=== PATIENT | female | born 1980 | race Caucasian/White ===

== ENCOUNTER 2020-11-12 03:05 | Emergency (ER) | payer MEDICARE, MEDICAID ==
[~2020-11-12] VITALS: Ht 152.4 cm; Wt 60.0 kg
[2020-11-12] MEDS ORDERED: ondansetron 4mg rapidly disintigrating tab PO ONE (03:15)
[2020-11-12] MEDS ORDERED: ONDA4TAB6 PO (04:13)
[2020-11-12 05:00] VITALS: BP 140/90
== END 2020-11-12 05:19 | disposition home or self-care (01) ==
LOC: ER 03:05
DX: R11.2 Nausea with vomiting, unspecified (principal); R53.1 Weakness; Z90.89 Acquired absence of other organs; Z90.710 Acquired absence of both cervix and uterus; Z88.0 Allergy status to penicillin; Z88.5 Allergy status to narcotic agent; Z88.1 Allergy status to other antibiotic agents; Z88.8 Allergy status to other drugs, medicaments and biological substances; Z79.899 Other long term (current) drug therapy
CPT/HCPCS: 99283

== ENCOUNTER 2022-03-29 14:46 | Emergency (ER) | payer MEDICARE, MEDICAID ==
[~2022-03-29 14:46] MED LIST: ONDA4TAB6 PO
[2022-03-29 14:55] VITALS: BP 162/74
[2022-03-29] MEDS ORDERED: ketorolac trometh. 30mg/ml inj. IM ONE (16:25)
[2022-03-29] MEDS ORDERED: ondansetron 4mg rapidly disintigrating tab PO ONE (16:25)
[2022-03-29] MEDS ORDERED: ONDA4TAB12 PO (16:31)
== END 2022-03-29 17:15 | disposition home or self-care (01) ==
LOC: ER 14:46
DX: B34.9 Viral infection, unspecified (principal); Z88.0 Allergy status to penicillin; Z88.5 Allergy status to narcotic agent; Z88.2 Allergy status to sulfonamides; Z88.8 Allergy status to other drugs, medicaments and biological substances; Z79.899 Other long term (current) drug therapy; Z90.49 Acquired absence of other specified parts of digestive tract; Z98.890 Other specified postprocedural states
CPT/HCPCS: 87502; 87503; 96372; 99283; J1885

== ENCOUNTER 2024-03-23 14:17 | Emergency (ER) | payer MEDICARE, MEDICAID ==
[~2024-03-23] VITALS: Ht 149.9 cm; Wt 56.8 kg
[~2024-03-23 14:17] MED LIST changes: +ONDA-243 PO
[2024-03-23 15:12] VITALS: BP 140/86; PULSE 87; TEMP 97.7; O2SAT 99
[2024-03-23 15:29] VITALS: RESP 16
[2024-03-23] MEDS ORDERED: ACET-1025 PO (17:31)
[2024-03-23] MEDS ORDERED: IBUP-1985 PO (17:31)
[2024-03-23] MEDS: ibuprofen tablet 400 MG TABLET PO STA (17:38)
[2024-03-23] MEDS: acetaminophen 325mg tablet PO STA (17:39)
== END 2024-03-23 17:41 | disposition home or self-care (01) ==
LOC: ER 14:18
DX: J22 Unspecified acute lower respiratory infection (principal); R05.9 Cough, unspecified; Z88.0 Allergy status to penicillin; Z88.2 Allergy status to sulfonamides; Z88.5 Allergy status to narcotic agent; Z88.8 Allergy status to other drugs, medicaments and biological substances; Z90.710 Acquired absence of both cervix and uterus; Z90.49 Acquired absence of other specified parts of digestive tract; Z79.899 Other long term (current) drug therapy
CPT/HCPCS: 99283

== ENCOUNTER 2024-04-26 08:20 | Emergency (ER) | payer MEDICARE, MEDICAID ==
[~2024-04-26] VITALS: Ht 149.9 cm; Wt 53.6 kg
[~2024-04-26 08:20] MED LIST changes: +IBUP-1985 PO
[2024-04-26 09:10] LABS: BASOPHILS % (AUTO) 0.3 % (0-1); EOSINOPHILS % (AUTO) 0.4 % (0-6); HEMATOCRIT 40.9 % (35.0-45.0); LYMPHOCYTES # (AUTO) 0.3 X10'3 (1.1-4.8); LYMPHOCYTES % (AUTO) 4.3 % (21-51); MEAN CORPUSCULAR HEMOGLOBIN 31.2 PG (27.0-31.0); MEAN CORPUSCULAR HGB CONC 34.3 g/dL (33.0-36.5); MEAN PLATELET VOLUME 7.6 FL (7.4-10.4); MONOCYTES # (AUTO) 0.5 X10'3 (0-0.9); MONOCYTES % (AUTO) 8.4 % (2-12); NEUTROPHILS # (AUTO) 5.3 X10'3 (1.8-7.7); NEUTROPHILS % (AUTO) 86.6 % (42-75); PLATELET COUNT 265 X10'3 (140-440); RED BLOOD COUNT 4.49 X10'6 (4.20-5.60); RED CELL DISTRIBUTION WIDTH 13.1 % (11.5-14.5); WHITE BLOOD COUNT 6.2 X10'3 (4.5-11.0)
[2024-04-26 09:18] LABS: ALBUMIN 4.2 G/DL (3.4-5.0); ANION GAP 7 (8-16); BLOOD UREA NITROGEN 8 MG/DL (7-18); BUN/CREATININE RATIO 9.8 (10.0-20.0); CHLORIDE 103 MMOL/L (99-107); CREATININE 0.82 MG/DL (0.40-0.90); GLUCOSE 125 MG/DL (70-104); MAGNESIUM 1.7 MG/DL (1.5-2.4); SODIUM 140 MMOL/L (135-145); TOTAL CARBON DIOXIDE 30.3 MMOL/L (24-32); eCRCL 61 ML/MIN; eGFR 76 ML/MIN
[2024-04-26] MEDS: normal saline 1000ML IV soln IV ONE (09:21)
[2024-04-26] MEDS: CefTRIAXone 2gm/D5W 50ml BAG 50 ML IV ONE (09:22)
[2024-04-26 09:32] LABS: CALCIUM 8.5 MG/DL (8.5-10.1)
[2024-04-26] MEDS: potassium Cl 20 mEq SR tablet PO ONE (09:59)
[2024-04-26] MEDS: metoclopramide 5 mg/ml inj IV ONE (10:00)
[2024-04-26] MEDS: POTASSIUM CHLORIDE 20 MEQ/15 ML oral solution PO ONE (10:00)
[2024-04-26] MEDS: ketorolac trometh 30MG/ML vial 30 MG/ML VIAL IV ONE (10:00)
[2024-04-26] MEDS: magnesium sulf-water 2g/50mL 50 ML IV ONE (10:03)
[2024-04-26 10:34] LABS: BILIRUBIN,URINE NEGATIVE (Neg); CLARITY,URINE CLEAR (Clear); COLOR,URINE YELLOW (Yellow); GLUCOSE, URINE NEGATIVE (Neg); KETONES,URINE NEGATIVE (Neg); LEUKOCYTE ESTERASE ,URINE NEGATIVE (Neg); NITRITES, URINE NEGATIVE (Neg); OCCULT BLOOD,URINE NEGATIVE (Neg); PROTEIN,URINE NEGATIVE (Neg); UROBILINOGEN,URINE 0.2 E.U/dL (0.2-1.0)
[2024-04-26 10:35] LABS: UA COLLECTION TYPE NON-SPECIFIED
[2024-04-26 11:19] LABS: URINE HCG NEGATIVE (NEG)
[2024-04-26] MEDS: acetaminophen 325mg tablet PO ONE (12:39)
[2024-04-26 13:55] VITALS: BP 109/64; PULSE 101; RESP 18; O2SAT 96
[2024-04-26 14:10] VITALS: TEMP 98.7
[2024-04-26] MEDS ORDERED: TAM75C PO (14:24)
[2024-04-26] MEDS: oseltamivir phos 75mg capsule PO ONE (14:38)
== END 2024-04-26 15:24 | disposition home or self-care (01) ==
LOC: ER 08:21
DX: J10.1 Influenza due to other identified influenza virus with other respiratory manifestations (principal); Z88.0 Allergy status to penicillin; Z88.2 Allergy status to sulfonamides; Z88.1 Allergy status to other antibiotic agents; Z91.041 Radiographic dye allergy status; Z88.5 Allergy status to narcotic agent; Z88.8 Allergy status to other drugs, medicaments and biological substances; Z90.710 Acquired absence of both cervix and uterus; Z90.49 Acquired absence of other specified parts of digestive tract; Z20.822 Contact with and (suspected) exposure to COVID-19
CPT/HCPCS: 36415; 71045; 80048; 81003; 81025; 83605; 83735; 84145; 85025; 87040; 87502; 87503; 87811; 93005; 96365; 96367; 96375; 99285; J0696; J1885; J2765; J7030; 94760

== ENCOUNTER 2024-10-13 19:54 | Emergency (ER) | payer MEDICARE, MEDICAID ==
[~2024-10-13] VITALS: Ht 149.9 cm; Wt 57.0 kg
[2024-10-13 20:06] VITALS: BP 163/87; PULSE 87; RESP 16; O2SAT 100
--- NOTE | 2024-10-13 20:29 | Physician Documentation ---
History of Present Illness ~ Chief Complaint: Bite-insect Stated Complaint: BITE Time Seen by MD: 20:46 Primary Medical Doctor: kaite miles HPI 44-year-old female that presents to the emergency department for evaluation of a bug bite on her right forearm the bite has been there for a couple of days and it hurts very much. Patient has requested Tylenol and ibuprofen for the pain. Patient denies seeing a bug bite her. Tetanus within 5 years?: Yes Medication Reconciliation Allergies: Coded Allergies: Penicillins (Verified Allergy, Intermediate, Hives, 10/13/24) morphine (Verified Allergy, Intermediate, nightmares, 10/13/24) sulfamethoxazole (Verified Allergy, Intermediate, Hives, 10/13/24) trimethoprim (Verified Allergy, Intermediate, Hives, 10/13/24) Iodinated Contrast Media (Verified Allergy, Unknown, 10/13/24) Scheduled Ibuprofen (Ibuprofen), 1 TAB PO Q8H Ibuprofen (Ibuprofen), 1 TAB PO Q8H Ondansetron Hcl (Zofran), 1 TAB PO Q8H Scheduled PRN ONDANSETRON ODT 4mg tablet (Ondansetron Odt), 1 TABLET PO Q6H PRN for nausea/vomiting Past Medical History 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 Physical Exam Vital Signs: Temperature: 98.0, Source: Temporal, Heart Rate: 87, Respiratory Rate: 16, BP: 163/87, Pulse Oximetry: 100, Weight: 57.000 Oxygen Flow Rate: 0 Physical Exam Scribed for Emergency,Department by RENÉ Catalan . 10/13/24 20:26 Progress Results/Orders Results/Orders Completed Orders - JENNIFER VARGAS Acetaminophen 325mg Tablet (Tylenol Tabl (10/13/24 20:30) Ibuprofen Tablet (Motrin Tablet) (10/13/24 20:30) Medications Received in ER Medications (Trade) Dose Ordered Sig/Natalia Route PRN Reason Start Time Stop Time Status Last Admin Dose Admin (Tylenol tablet) 650 mg ONCE ONCE PO 10/13/24 20:30 10/13/24 20:32 DC 10/13/24 20:42 650 MG (Motrin tablet) 600 mg ONCE ONCE PO 10/13/24 20:30 10/13/24 20:32 DC 10/13/24 20:41 600 MG Vital Signs 10/13/24 20:06 Temp 98.0 Pulse 87 Resp 16 B/P (MAP) 163/87 Pulse Ox 100 O2 Flow Rate 0 Medical Decision Making Findings This patient who presents with rash, consistent with a bug bite. History and exam findings not consistent with dangerous etiologies of rash such as SJS/TEN, or secondary dangerous causes such as petechial rashes from thrombocytopenia or rickettsial infections. Rash does not appear urticarial with no signs of anaphylaxis either. Plan at this time is to treat symptomatically, instruct to follow up with PCP or derm PRN Departure Disposition: 01 HOME / SELF CARE / HOMELESS Impression: Primary Impression: Insect bites Condition: Stable Additional Instructions: Please follow up with your primary care provider for additional evaluation. If your symptoms worsen or you develop any additional concerning symptoms please return to the ER. Please take Tylenol ibuprofen as needed for discomfort. Referrals: NO PRIMARY CARE PROVIDER (PCP) Education Educated: Patient Educated regarding: treatment, need for follow up Signature Scribe Signature: . Attestation: Scribed for Jennifer Vargas by RENÉ Catalan . 10/13/24 20:49 JENNIFER VARGAS Oct 13, 2024 20:29
[2024-10-13 20:57] VITALS: TEMP 98
== END 2024-10-13 20:58 | disposition home or self-care (01) ==
LOC: ER 19:54
DX: S50.861A Insect bite (nonvenomous) of right forearm, initial encounter (principal); Z88.0 Allergy status to penicillin; Z88.1 Allergy status to other antibiotic agents; Z88.2 Allergy status to sulfonamides; Z88.5 Allergy status to narcotic agent; Z88.8 Allergy status to other drugs, medicaments and biological substances; Z90.49 Acquired absence of other specified parts of digestive tract; Z90.710 Acquired absence of both cervix and uterus; W57.XXXA Bitten or stung by nonvenomous insect and other nonvenomous arthropods, initial encounter; Z91.041 Radiographic dye allergy status; Y93.89 Activity, other specified; Y92.89 Other specified places as the place of occurrence of the external cause; Y99.8 Other external cause status
CPT/HCPCS: 99283

== ENCOUNTER 2025-01-20 20:57 | Emergency (ER) | payer MEDICARE, MEDICAID ==
[~2025-01-20] VITALS: Ht 149.9 cm; Wt 60.0 kg
[~2025-01-20 20:57] MED LIST changes: -IBUP-1985 PO; +IBUP600T52 PO
--- NOTE | 2025-01-20 21:20 | Physician Documentation ---
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 She reports experiencing headache, starting from the occipital, wrapping around her whole had. No particular palliating or aggravating factors. Did not attempt to treat it. She also reports fever, chills. Reports nasal congestion. Reports chest pain with deep inspiration and cough. No shortness a breath however. Self reports nausea, innumerable episodes of vomiting, several episodes of diarrhea, lower abdominal pain. No palliating or aggravating factors. Denies any chance of . No concern for tobacco, alcohol or illicit substances use Medication Reconciliation Allergies: Coded Allergies: Penicillins (Verified Allergy, Intermediate, Hives, 10/13/24) morphine (Verified Allergy, Intermediate, nightmares, 10/13/24) sulfamethoxazole (Verified Allergy, Intermediate, Hives, 10/13/24) trimethoprim (Verified Allergy, Intermediate, Hives, 10/13/24) Iodinated Contrast Media (Verified Allergy, Unknown, 10/13/24) Scheduled Ibuprofen (Ibuprofen), 1 TAB PO Q8H Ibuprofen (Ibuprofen), 1 TAB PO Q8H Ondansetron Hcl (Zofran), 1 TAB PO Q8H Scheduled PRN ONDANSETRON ODT 4mg tablet (Ondansetron Odt), 1 TABLET PO Q6H PRN for nausea/vomiting Past Medical History 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 Physical Exam Physical Exam Vital Signs: Temperature: 99.0, Source: Oral, Heart Rate: 110, Respiratory Rate: 17, BP: 157/90, Pulse Oximetry: 98, Weight: 60.000 Physical Exam GENERAL: Awake, alert, oriented, GCS 15, no apparent distress, non-toxic appearing, answers questions, follows commands appropriately. Examined in bed 10. HEENT: Atraumatic, normocephalic, pupils equal, extraocular muscles intact, sclerae anicteric, mucus membranes moist, oropharynx is clear, no stridor. NECK: supple, full active range of motion, trachea midline, no thyromegaly, no lymphadenopathy, no JVD. CARDIOVASCULAR: Tachycardic and regular rate/rhythm, no murmurs/gallops/rubs, Pulses are 2+ in all extremities and symmetric. Capillary refill less than 2 seconds. PULMONARY: Nonlabored, good air movement ,no respiratory distress, speaking in full sentences, clear to auscultation bilaterally, no wheezing, no ronchi, no rales, no accessory muscle use. GASTROINTESTINAL: Soft, tender lower abdomen without guarding or rebound, non- distended, normal active bowel sounds, no organomegaly, no pulsatile masses, no CVA tenderness. NEUROLOGIC: Lucid with normal mental status. Normal facial symmetry. Moves all extremities symmetrically and with purpose. No truncal ataxia. Speech is fluid without evidence of dysarthria or aphasia, no focal deficits appreciated. MUSCULOSKELETAL: There is full range of motion of all extremities. There is no joint pain or joint swelling or joint erythema. There is no muscle pain or tenderness or swelling. EXTREMITIES: warm, well-perfused, no cyanosis, no clubbing, no edema, no acute deformities. Skin: warm, dry, no rashes or lesions, no jaundice, no petechiae orpurpura. No ecchymosis. PSYCHIATRIC: Normal affect, normal insight, normal concentration. Focused exam: [] Progress Results/Orders Results/Orders Orders - ORLANDO MANN DO Monitor (01/20/25 21:09) Saline Lock (01/20/25 21:09) Ct Head (01/20/25 21:09) Ct Abdomen Pelvis (01/20/25 21:09) Culture Blood (01/20/25 21:09) Chest,Two Views (01/20/25 21:09) Covid19 Binax Poc Result Entry (01/20/25 21:) Completed Orders - ORLANDO MANN DO Cbc/Diff (01/20/25 21:09) ESR (01/20/25 21:09) Lipase (01/20/25 21:09) C-Reactive Protein (01/20/25 21:09) Urinalysis, Cult If Indicated (01/20/25 21:09) PBNP (01/20/25 21:09) MG (01/20/25 21:09) TSH (01/20/25 21:09) Free T4 (01/20/25 21:09) Normal Saline 1000ml (0.9% Sodium Chlori (01/20/25 21:10) Hcg Serum Ql (01/20/25 21:09) Ct Head (01/20/25 21:09) Ct Abdomen Pelvis (01/20/25 21:09) CMP (01/20/25 21:09) Hs Troponin I W Calculations (01/20/25 21:09) Hs Troponin I W Calculations (01/20/25 23:09) Ketorolac Trometh 30mg/Ml Vial (Toradol (01/20/25 21:10) Ondansetron Inj. (Zofran 4mg/2ml Vial) (01/20/25 21:10) Electrocardiogram (01/20/25 21:09) Lacticsepsis (01/20/25 21:09) Chest,Two Views (01/20/25 21:09) Influenza Type A&B Rapid Test (01/20/25 21:09) Medications Received in ER Medications (Trade) Dose Ordered Sig/Natalia Route PRN Reason Start Time Stop Time Status Last Admin Dose Admin (0.9% sodium chloride (NS) 1000ml IV soln) 1,000 ml ONCE ONCE IVB 01/20/25 21:10 01/20/25 21:16 DC 01/20/25 21:52 1,000 ML (Toradol inj. 30mg/ml) 30 mg ONCE ONCE IV 01/20/25 21:10 01/20/25 21:16 DC 01/20/25 21:51 30 MG (Zofran 4mg/2ml vial) 8 mg ONCE ONCE IV 01/20/25 21:10 01/20/25 21:16 DC 01/20/25 21:51 8 MG Vital Signs 01/20/25 01/20/25 01/20/25 21:06 21:13 21:51 Temp 99.0 Pulse 110 Resp 17 13 13 B/P (MAP) 157/90 Pulse Ox 98 Laboratory Tests Test 01/20/25 21:45 01/20/25 22:18 01/20/25 22:24 01/20/25 23:39 White Blood Count 9.2 Red Blood Count 4.91 Hemoglobin 15.5 Hematocrit 44.0 Mean Corpuscular Volume 89.6 Mean Corpuscular Hemoglobin 31.6 H Mean Corpuscular Hemoglobin Concent 35.3 Red Cell Distribution Width 13.2 Platelet Count 306 Mean Platelet Volume 7.7 Neutrophils (%) (Auto) 86.4 H Lymphocytes (%) (Auto) 7.5 L Monocytes (%) (Auto) 5.3 Eosinophils (%) (Auto) 0.5 Basophils (%) (Auto) 0.3 Neutrophils # (Auto) 8.0 H Lymphocytes # (Auto) 0.7 L Monocytes # (Auto) 0.5 Eosinophils # (Auto) 0.0 Basophils # (Auto) 0.0 CBC Comment Erythrocyte Sedimentation Rate 8 Sodium Level 138 Potassium Level 3.7 Chloride Level 101 Carbon Dioxide Level 27.9 Anion Gap 9 Blood Urea Nitrogen 10 Creatinine 0.77 Estimated GFR/1.73 m2 82 BUN/Creatinine Ratio 13.0 Glucose Level 122 H Lactic Acid Level 0.6 Calcium Level 9.1 Magnesium Level 1.7 Total Bilirubin 0.7 Aspartate Amino Transf (AST/SGOT) 19 Alanine Aminotransferase (ALT/SGPT) 16 Alkaline Phosphatase 74 Troponin I High Sensitivity < 4 L 5 Troponin I High Sens Percent Delta Troponin I Hi Sens Absolute Change C-Reactive Protein 0.09 Pro-B-Type Natriuretic Peptide 120 Total Protein 8.8 H Albumin 4.3 Globulin 4.5 H Albumin/Globulin Ratio 1.0 L Lipase 27 Thyroid Stimulating Hormone (TSH) 1.94 Free Thyroxine 0.91 Human Chorionic Gonadotropin, Qual Negative Chemistry Comments Influenza Type A Antigen Negative Influenza Type B Antigen Negative SARS-CoV-2 Antigen (Rapid) Positive *A Test 01/20/25 23:53 Urine Specimen Description Cln catch midstream Urine Color Yellow Urine Clarity Clear Urine pH 6.0 Urine Specific [place] 1.015 Urine Protein Negative Urine Glucose (UA) Negative Urine Ketones Negative Urine Occult Blood Negative Urine Nitrite Negative Urine Bilirubin Negative Urine Urobilinogen 0.2 Urine Leukocyte Esterase Negative Urine Culture Indicated Not ind Volume Urine Centrifuged 10 ml Urine Comment Microbiology Date/Time Source Procedure Growth Status 01/20/25 21:55 Blood Iv Draw Blood Culture - Preliminary NEGATIVE (LESS THAN 24 HOURS) Resulted EKG/XRAY/CT/US/VASC/MRI EKG : Additional Comment EKG was obtained and interpreted by myself showing sinus rhythm, tachycardia of 123, normal MT interval, narrow QRS, no QT prolongation, right axis, no STEMI. Medical Decision Making Additional information obtaine: old records, other (EMS) Findings Facility Status: ED [facility], [facility] process The plan was discussed with the patient, who demonstrates clear understanding of the plan and is in agreement with the plan unless otherwise noted in the chart. All questions have been answered, all concerns were addressed unless otherwise documented. I was available throughout their ED stay for frequent reassessment and questions. Differential Diagnoses (considered and possible or likely): [Multiple complaints with a very broad differential diagnosis. With respect to headache, differential includes but not limited to tension headache, viral syndrome, migraine, less likely subdural, subarachnoid, cluster headache or trigeminal neuralgia. With respect to her chest pain, Differential diagnosis considered includes COVID, influenza, chest wall pain, pleurisy, pneumonia, pulmonary embolus, GERD, esophagitis, gastritis, anxiety, stress reaction, costochondritis, acute coronary syndrome, aortic dissection, pericarditis, myocarditis, or pneumothorax. With respect to her abdominal pain and nausea vomiting diarrhea, Differential diagnosis considered includes acute appendicitis, acute cholecystitis, pancreatitis, gastritis, PUD, diverticulitis, mesenteric ischemia, abdominal aortic aneurysm, bowel obstruction, enteritis, colitis, fecal impaction, volvulus, IBS, inflammatory bowel disease, specific food intolerance, peritonitis, perforated viscous, malignancy, UTI, abscess, and abdominal pain NOS. Pelvic source of pain was also considered including endometritis, dy smenorrhea, ovarian cyst, ovarian torsion, PID, TOA, cervicitis, vaginitis, or uterine fibroid. History, physical exam, and workup exclude many of the more serious causes listed above. ] ??Differential Diagnoses (considered and unlikely, not requiring evaluation currently): [Aortic/great vessels dissection was considered but it is unlikely based on absence of ripping, tearing, migratory chest pain, absence of syncope or focal neurologic deficits, physical examination indicating equal and symmetric pulses.] MDM Data Please see HPI for the following: Independent Historians and external Records Review. Historian: [Patient] Independent Historians: ?[EMS, record review] Medication Management: [Reviewed medication list] Social History and determinants: [Reviewed] Please see the body of the note for the following: Any independent interpretations of ECG, imaging studies. All vitals signs/haemodynamics, ordered tests were independently reviewed and interpreted by myself. Nursing triage complaint and vitals reviewed, additional nursing notes were reviewed as available and I agree unless otherwise noted or documented in contradiction in the chart Vital Signs: Independently reviewed Labs: Independently interpreted Imaging: Independently interpreted Old Medical Records: Independently reviewed, see HPI for relevant summary and information Pulse Oximetry: [97%] interpreted as [normal on room air] by me [Tumbling And Rolling Supervisor: Tachycardic Rate, Regular rhythm, no ectopy, sinus tachycardia. reviewed and interpreted by me] Additionally notably showing: [Hemodynamics reviewed. The patient is tachycardic on presentation, tachycardia had resolved with the rest and fluids. No evidence of hypotension respiratory distress. CBC is normal without evidence of leukocytosis, anemia, platelets are normal. 84% neutrophilic predominance, could be infectious versus reactive. Chemistry is unremarkable, normal electrolytes, normal renal function. Normal liver function. Lipase is also normal. Thyroid function is normal. She is not . Two troponins are negative. UA is nondiagnostic for UTI. The patient is positive for COVID. Influenza is negative. CT head was obtained showing no acute intracranial process, however there sinusitis. Chest x-ray is unremarkable. CT of the abdomen shows thickening of the urinary bladder, however there is no evidence of UTI on the you a.] Tests considered but not ordered include: [CT angiography has been considerably, how ever the patient is allergic to contrast] Social Determinants of Health Impact: Patient was evaluated in [facility] [place] to healthcare due to below par ratio of patient to medical providers. [] Comorbid Conditions Impacting Present Evaluation and Care/Treatment: [See list] Management Discussions with other Healthcare Providers: [None] Treatment and Disposition Medication Management (Given or considered): []. See EMR for details Consideration for Hospitalization/Escalation/Deescalation of Care: Admission for observation has been considered, [however the patient is able to tolerate p.o., their symptoms are controlled, they are able to rely on oral medications, and their chief complaint/diagnosis can be managed on outpatient basis.] ?ED Course:?[No clinical deterioration. No vomiting in the ED.] ?Shared decision making:?[Patient is hemodynamically stable for discharge home with follow with their primary care provider. [ ] Specific and cautious return precautions provided and discussed with full understanding. Any incidental find ings were also discussed and follow up recommendations given. [] All questions answered. Patient/family were able to verbalize back return precautions. Patient/family agree to plan. Copies of imaging and laboratory studies were provided.] Code status:?FULL Please see the full Electronic Medical Record for full details of nursing documentation, medications list, other records of complete past medical history and conditions, vital signs, laboratory studies, and any radiologic study interpretations by radiologists. Portions of this note were completed using [employer] dictation software and as a result there may exist minor errors in sp jorgeing. I have reviewed elements of past family and social history and agree as included in note. Differential Diagnosis See body of main note Departure Disposition: HOME / SELF CARE / HOMELESS Impression: Primary Impression: COVID-19 Additional Impressions: Nausea & vomiting Diarrhea Abdominal pain Headache Condition: Improved Discharge Instructions: Abdominal Pain, Adult, General Headache Without Cause Referrals: NO PRIMARY CARE PROVIDER (PCP) Prescriptions Dicyclomine Hcl* (Bentyl*) 10 Mg Capsule 2 CAP PO Q8H PRN for ABDOMINAL PAIN, #30 CAP Prov: ORLANDO MANN DO 01/21/25 ONDANSETRON ODT 4mg tablet (ONDANSETRON ODT) 4 Mg Tab.rapdis 1 TAB PO Q6H PRN PRN for nausea/vomiting for 4 Days, #16 TAB 0 Refills Prov: ORLANDO MANN DO 01/21/25 Education Educated: Patient Educated regarding: diagnosis, treatment, prognosis, need for follow up Signature Scribe Signature: No scribe Attestation: Date: Jan 20, 2025 Time: 21:20 This note accurately reflects clinical decisions, work performed by myself, DO JOHNATHAN Dhillon NICHOLAS M DO Jan 20, 2025 21:20
--- NOTE | 2025-01-20 21:32 | ELECTROCARDIOGRAPH REPORT ---
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 Will Jacques Measurements Intervals [place] Rate: 123 P: 82 TN: 129 QRS: 103 QRSD: 87 T: 17 QT: 328 QTc: 470 Interpretive Statements Sinus tachycardia Consider right atrial enlargement RVH with secondary repolarization abnrm Electronically Signed On 01-21-2025 6:13:[address] Will Jacques Please click the below link to view image of tracing.
--- NOTE | 2025-01-20 21:46 | RADIOLOGY REPORT ---
DI CHEST,TWO VIEWS INDICATION: Chest pain TECHNIQUE: Two views of the chest COMPARISON: DI CHEST,SINGLE VIEW on DOS: 04/26/24 FINDINGS/IMPRESSION: LUNGS: No pleural effusion, consolidation, or pneumothorax. MEDIASTINUM: Unremarkable. BONES: No acute osseous abnormality. OTHER: None.
[2025-01-20] MEDS: ondansetron/PF 4mg/2ml inj IV ONE (21:51)
[2025-01-20] MEDS: ketorolac trometh 30MG/ML vial 30 MG/ML VIAL IV ONE (21:51)
[2025-01-20] MEDS: normal saline 1000ML IV soln IVB ONE (21:52)
[2025-01-20 22:05] LABS: MEAN PLATELET VOLUME 7.7 FL (7.4-10.4); RED CELL DISTRIBUTION WIDTH 13.2 % (11.5-14.5)
[2025-01-20 22:23] LABS: CREATININE 0.77 MG/DL (0.40-0.90); TOTAL CARBON DIOXIDE 27.9 MMOL/L (24-32); eCRCL 65 ML/MIN; eGFR 82 ML/MIN
[2025-01-20 22:33] LABS: PRO BRAIN NATRIURETIC PEPTIDE 120 PG/ML (0-125)
[2025-01-20 22:45] LABS: INFLUENZA TYPE A ANTIGEN RAPID NEGATIVE (Negative); INFLUENZA TYPE B ANTIGEN RAPID NEGATIVE (Negative)
[2025-01-20 22:49] LABS: HCG SERUM QL NEGATIVE
[2025-01-20 23:59] LABS: LEUKOCYTE ESTERASE ,URINE NEGATIVE (Neg); NITRITES, URINE NEGATIVE (Neg); OCCULT BLOOD,URINE NEGATIVE (Neg)
[2025-01-21 00:03] LABS: UA COLLECTION TYPE CLN CATCH MIDSTREAM
--- NOTE | 2025-01-21 00:37 | RADIOLOGY REPORT ---
EXAM: CT CT HEAD INDICATION: Headache TECHNIQUE: CT of the head without intravenous contrast. Radiation Dose Information: CT Dose: CTDI volume is 63.06 mGy. Dose-length product is 1157.99 mGy*cm The dose indicators for CT are the volume Computed Tomography (CT) Dose Index (CTDIvol) and the Dose Length Product (DLP), and are measured in units of mGy and mGy-cm, respectively. These indicators are not patient dose, but values generated from the CT scanner acquisition factors. The report includes radiation exposure data for exposures received during this examination. COMPARISON: None FINDINGS: Motion artifact degrades fine detail. The cerebral parenchyma appears to be normal configuration and attenuation. The ventricles, cisterns, and sulci appear age-appropriate. There is no evidence for acute territorial infarct, hemorrhage, or mass effect. The orbits are normal. Subtotal opacification of the ethmoid air cells. The soft tissues and osseous structures appear within normal limits. IMPRESSION: 1. No acute territorial infarct, intracranial hemorrhage, or mass effect. If clinical symptoms persist, MRI may be beneficial in further evaluation. 2. Paranasal sinus disease as detailed.
--- NOTE | 2025-01-21 00:41 | RADIOLOGY REPORT ---
Exam: CT CT ABDOMEN PELVIS History: Lower abdominal pain, nausea vomiting Comparison Study: None TECHNIQUE: Multidetector CT of the abdomen and pelvis was performed from lung bases to pubic symphysis. Imaging was performed without IV contrast. Axial, coronal, and sagittal multiplanar reformats were obtained from the axial data set by the technologist. RADIATION DOSE: CTDI vol 10.92 mGy. DLP 515.62 mGy.cm Findings: Limited evaluation of the solid organs in the absence of IV contrast. Lungs: The lung bases are clear. Liver: Unremarkable. Spleen: Unremarkable. Pancreas: Unremarkable. Gallbladder: Unremarkable. Adrenals: Unremarkable Kidneys: Unremarkable. Pelvic Viscera: Mild wall thickening of the urinary bladder. Vasculature: Unremarkable. Retroperitoneum: Shotty retroperitoneal nodes. Bowel: No bowel obstruction. Prior appendectomy. Musculoskeletal: Unremarkable. Soft tissues: Unremarkable Impression: 1. Mild wall thickening of the urinary bladder may reflect cystitis in the appropriate clinical setting.
[2025-01-21] MEDS ORDERED: ONDA-243 PO (00:57)
[2025-01-21] MEDS ORDERED: DICY10CA88 PO (00:57)
[2025-01-21 01:09] VITALS: BP 132/64; PULSE 105; RESP 11; TEMP 99; O2SAT 97
== END 2025-01-21 01:11 | disposition home or self-care (01) ==
LOC: ER 20:57
DX: U07.1 COVID-19 (principal); Z88.0 Allergy status to penicillin; Z88.5 Allergy status to narcotic agent; Z88.2 Allergy status to sulfonamides; Z91.041 Radiographic dye allergy status; Z90.710 Acquired absence of both cervix and uterus; Z90.49 Acquired absence of other specified parts of digestive tract; Z88.8 Allergy status to other drugs, medicaments and biological substances; Z79.899 Other long term (current) drug therapy; Z20.822 Contact with and (suspected) exposure to COVID-19
CPT/HCPCS: 36415; 70450; 71046; 74176; 80053; 81003; 83605; 83690; 83735; 83880; 84439; 84443; 84484; 84703; 85025; 85651; 86140; 87040; 87077; 87186; 87804; 87811; 93005; 96361; 96374; 96375; 99285; J1885; J2405; J7030